=== PATIENT | male | born 1980 ===

== ENCOUNTER 2016-09-23 02:47 | Emergency (ER) | payer OTHER ==
[2016-09-23 02:58] VITALS: BP 160/103; PULSE 74; RESP 18; TEMP 98.6; O2SAT 98
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
== END 2016-09-23 04:17 | disposition home or self-care (01) ==
LOC: H.ER 02:47
DX: S39.012A Strain of muscle, fascia and tendon of lower back, initial encounter (principal); V43.52XA Car driver injured in collision with other type car in traffic accident, initial encounter; Y92.410 Unspecified street and highway as the place of occurrence of the external cause